=== PATIENT | female | born 1995 | race Two or more races ===

== ENCOUNTER 2022-04-13 17:56 | Emergency (ER) | payer OTHER ==
[2022-04-13 18:08] VITALS: BP 110/69; PULSE 92; RESP 18; TEMP 98.6; BMI 22.3
== END 2022-04-13 20:35 | disposition home or self-care (01) ==
LOC: JER 17:56
DX: O26.891 Other specified pregnancy related conditions, first trimester (principal); Z3A.01 Less than 8 weeks gestation of pregnancy
CPT/HCPCS: 99282-25